=== PATIENT | male | born 1950 | race Caucasian/White ===

== ENCOUNTER → 2024-05-05 10:46 | Outpatient (REF) | payer MEDICARE, OTHER, SELFPAY ==
[2024-05-05 12:18] LABS: Glycohemoglobin (HgbA1c) 7.1 % (4.0-5.6)
[2024-05-05 12:39] LABS: ALT (SGPT) 35 U/L (0-50); AST (SGOT) 35 U/L (17-59); Albumin 4.5 g/dl (3.5-5.0); Alkaline Phosphatase 35 U/L (38-126); Blood Urea Nitrogen 21 mg/dl (9-20); Calcium 9.4 mg/dl (8.4-10.2); Carbon Dioxide 25 mmol/L (22-30); Chloride 103 mmol/L (98-107); Glucose 122 mg/dl (70-99); HDL Cholesterol 58 mg/dl; LDL Cholesterol, Calculated 56 mg/dl; Potassium 4.8 mmol/L (3.5-5.1); Sodium 140 mmol/L (135-145); Total Bilirubin 0.6 mg/dl (0.2-1.3); Total Cholesterol 156 mg/dl (50-199); Total Protein 6.8 g/dl (6.3-8.2); Triglyceride 213 mg/dl (10-149); Very Low Density Lipoprotein 42 mg/dl (0-30); eGFR > 60.00
[2024-05-05 13:10] LABS: Microalbumin, Random Urine 0.7 mg/dl (0.6-1.7)
== END ==
LOC: REG 10:46
PROVIDERS: ATTENDING PHYSICIAN Internal Medicine
DX: E11.9 Type 2 diabetes mellitus without complications (principal); I10 Essential (primary) hypertension; E78.2 Mixed hyperlipidemia
CPT/HCPCS: 36415; 80053; 80061; 82043; 83036

== ENCOUNTER → 2024-08-29 10:37 | Outpatient (REF) | payer MEDICARE, OTHER, SELFPAY | LOC: RAD 10:37 | PROVIDERS: ATTENDING PHYSICIAN Nurse Practitioner Family | DX: K21.9 Gastro-esophageal reflux disease without esophagitis (principal) | CPT/HCPCS: 74221 ==

== ENCOUNTER → 2024-09-12 11:14 | Outpatient (REF) | payer MEDICARE, OTHER, SELFPAY ==
[2024-09-12 12:50] LABS: PSA, Total - Diagnostic 1.22 ng/ml (0.0-4.0)
== END ==
LOC: REG 11:14
PROVIDERS: ATTENDING PHYSICIAN Urology; FAMILY PHYSICIAN Internal Medicine
DX: N40.1 Benign prostatic hyperplasia with lower urinary tract symptoms (principal); R35.0 Frequency of micturition
CPT/HCPCS: 36415; 84153

== ENCOUNTER 2024-12-26 06:24 | Day surgery (SDC) | payer MEDICARE, OTHER, SELFPAY ==
[2024-12-26 07:32] LABS: Glucose - Point of Care 163 mg/dl (70-99)
== END 2024-12-26 09:56 | disposition home or self-care (01) ==
LOC: GI 06:24
PROVIDERS: ATTENDING PHYSICIAN Internal Medicine Gastroenterology
DX: Z12.11 Encounter for screening for malignant neoplasm of colon (principal); D12.2 Benign neoplasm of ascending colon; D12.3 Benign neoplasm of transverse colon; D12.4 Benign neoplasm of descending colon; D12.5 Benign neoplasm of sigmoid colon; K57.30 Diverticulosis of large intestine without perforation or abscess without bleeding; K64.8 Other hemorrhoids; Z86.0100 Personal history of colon polyps, unspecified
CPT/HCPCS: 45385; 45380; 88305; 82962

== ENCOUNTER → 2025-02-02 12:33 | Outpatient (REF) | payer MEDICARE, OTHER, SELFPAY ==
[2025-02-02 13:32] LABS: ALT (SGPT) 35 U/L (0-50); AST (SGOT) 34 U/L (17-59); Albumin 4.7 g/dl (3.5-5.0); Alkaline Phosphatase 43 U/L (38-126); Blood Urea Nitrogen 12 mg/dl (9-20); Calcium 9.8 mg/dl (8.4-10.2); Carbon Dioxide 28 mmol/L (22-30); Chloride 100 mmol/L (98-107); Glucose 124 mg/dl (70-99); HDL Cholesterol 52 mg/dl; LDL Cholesterol, Calculated 44 mg/dl; Potassium 4.3 mmol/L (3.5-5.1); Sodium 136 mmol/L (135-145); Total Protein 6.9 g/dl (6.3-8.2); Very Low Density Lipoprotein 46 mg/dl (0-30); eGFR > 60.00
[2025-02-02 14:01] LABS: PSA, Total - Screen 1.05 ng/ml (0.0-4.0)
[2025-02-02 14:15] LABS: Microalbumin, Random Urine < 0.6 mg/dl (0.6-1.7)
[2025-02-02 14:16] LABS: Glycohemoglobin (HgbA1c) 7.4 % (4.0-5.6)
== END ==
LOC: REG 12:33
PROVIDERS: ATTENDING PHYSICIAN Internal Medicine
DX: E11.9 Type 2 diabetes mellitus without complications (principal); I10 Essential (primary) hypertension; E78.2 Mixed hyperlipidemia; Z12.5 Encounter for screening for malignant neoplasm of prostate
CPT/HCPCS: 36415; 80053; 80061; 82043; 83036; G0103

== ENCOUNTER 2025-02-08 10:43 | Emergency (ER) | payer MEDICARE, OTHER, SELFPAY ==
[2025-02-08 10:43] VITALS: BMI 29.4
[2025-02-08 11:00] VITALS: BP 139/79
[2025-02-08 11:21] LABS: Hematocrit 41.9 % (39.0-52.0); Hemoglobin 14.2 g/dL (13.0-18.0); Mean Corp Hgb Conc. 33.9 g/dL (33.0-37.0); Mean Corpuscular Volume 84.6 fL (80.0-94.0); Nucleated Red Blood Cells % 0 % (-); Platelet Count 176 10^3/uL (130-400); Red Cell Dist. Width 13.2 % (11.5-14.5)
[2025-02-08 11:37] LABS: ALT (SGPT) 42 U/L (0-50); AST (SGOT) 43 U/L (17-59); Albumin 4.8 g/dl (3.5-5.0); Alkaline Phosphatase 40 U/L (38-126); Blood Urea Nitrogen 20 mg/dl (9-20); Calcium 9.7 mg/dl (8.4-10.2); Carbon Dioxide 24 mmol/L (22-30); Chloride 104 mmol/L (98-107); Glucose 156 mg/dl (70-99); Lipase 86 U/L (23-300); Potassium 4.5 mmol/L (3.5-5.1); Sodium 136 mmol/L (135-145); Total Protein 7.2 g/dl (6.3-8.2); eGFR > 60.00
--- NOTE | 2025-02-08 12:03 | ED.GENMED ---
History of Present Illness
General
Chief Complaint: Abdominal Symptoms
Time Seen by Provider: 02/08/25 11:48
History of Present Illness
History of Present Illness:
75-year-old male with history of hypertension hyperlipidemia and bvi-nuryicb-cpsktvqne diabetes presents to the emergency department for evaluation of diffuse abdominal pain ongoing for the past 3 weeks. Pain worsened after eating within
approximately 30 to 45 minutes. Reports generalized periumbilical pain. No fevers, night sweats. Does report mild diarrhea but denies any steatorrhea. No prior abdominal surgical history.
Past History
Past History
ED Past Medical History: HTN, Hypercholesterolemia, NIDDM and Other (Diverticulitis, renal calculi)
ED Past Surgical History: Orthopedic and Tonsilectomy
Social History
Tobacco: Former smoker
Alcohol: Occasional
Personal: Single
Living: with roommate
Review of Systems
Review of Systems
Allergies reviewed?: Yes
All Other Systems: ROS reviewed and negative except as documented in HPI and ROS
Phy Exam
Physical Exam
Physical Exam:
GEN: Well appearing, NAD, WDWN
HEENT: Oral mucosa moist, no scleral icterus
Cardiac: Regular rate
Lung: No respiratory distress, no tachypnea
Abdomen: Soft, diffuse generalized tenderness, no rigidity or peritoneal signs
MSK: No gross deformity or injuries
Skin: Good color, no pallor or jaundice, no rashes
Neuro: AO x3, moves all extremities freely
Psych: Calm, cooperative
Course
Orders/Labs/Results
Orders:
Orders
02/08/25 11:06
Complete Blood Count/With Diff Urgent
Comprehensive Metabolic Panel Urgent
Lipase Urgent
02/08/25 12:02
CT Abd/Pel (IV only)-DH only Urgent
Comment:
Reason For Exam: intractable abd pain x 3wks
02/08/25 13:35
US Abdomen Limited Urgent
Comment: RUQ only
Reason For Exam: post prandial pain
Abnormal Lab Results
02/08/25
11:06
MPV 10.8 H fL
(7.4-10.4)
Monocytes % 9.6 H %
(1.7-9.3)
Glucose 156 H mg/dl
(70-99)
02/08/25 11:06
02/08/25 11:06
Vital Signs
Initial and Last Documented VS:
Initial Vital Signs
Temp Pulse Resp BP Pulse Ox
98.5 F 85 16 139/79 97
02/08/25 11:00 02/08/25 11:00 02/08/25 11:00 02/08/25 11:00 02/08/25 11:00
Last Documented Vital Signs
Temp Pulse Resp BP Pulse Ox
98 F 77 16 126/78 99
02/08/25 12:47 02/08/25 14:00 02/08/25 14:00 02/08/25 12:47 02/08/25 14:00
MDM/Problems Addressed
MDM/Problems Addressed:
Unclear etiology to patient's pain, imaging broadly unremarkable. Recommend outpatient GI follow-up
*Pulse Oximetry
SaO2: 97
Oxygen Mode of Delivery: Room air
Patient hypoxic: no
*Critical Care Note
Total Time (30-74mins, 75-104mins- exclusive of procedures): Not Applicable
ED Attending Note
-
Portions of this chart may have been created with voice recognition software.� Occasional wrong word or��sound alike� substitutions may have occurred due to the inherent limitations of voice recognition software.
Discharge Plan
Departure
Patient Disposition: Home (Routine Discharge)
Date of Disposition: 02/08/25
Time of Disposition: 14:36
Patient with high blood pressure during this ER visit?: No
Discharge Problem:
Generalized postprandial abdominal pain
Instructions: Abdominal Pain
Prescriptions:
No Action
simvastatin 20 MG tablet
20 mg PO HS
metformin 1,000 MG tablet
1,000 mg PO BID@0800,1700
alfuzosin 10 MG tablet extended release 24 hr
10 mg PO QPM
febuxostat [Uloric] 80 MG tablet
40 mg PO QPM
finasteride 1 mg Tablet
1 mg PO DAILY
alpha lipoic acid 600 mg Capsule
600 mg PO DAILY
Trulicity 1.5 mg/0.5 mL Pen Injector
1.5 mg SC SA
Konsyl Daily Fiber (stevia) 3.5 gram Powder In Packet
1 packet PO DAILY
gabapentin 100 mg Capsule
100 mg PO DAILY
losartan 100 mg Tablet
100 mg PO DAILY
pantoprazole 40 MG tablet,delayed release (DR/EC)
40 mg PO BID
acetaminophen [Tylenol] 325 mg Tablet
650 mg PO Q6HPRN PRN (Reason: mild pain)
Theragen Tablet
1 tab PO DAILY
famotidine [Pepcid] 20 mg Tablet
20 mg PO HS
gabapentin 100 mg Capsule
200 mg PO HS
cholecalciferol (vitamin D3) [Vitamin D3] 25 mcg (1,000 unit) Tablet
25 mcg PO DAILY
Visbiome 112.5 billion cell Capsule
1 cap PO DAILY
amoxicillin-pot clavulanate 875-125 mg tablet
1 tab PO BID Qty: 14 0RF
Referrals:
Frandy Hannon DO [Active, Gastroenterology]
Bob Brower DO [Family Provider, Internal Medicine]
Interventions
Interventions:
*Risk Screen - Suicide Last Done: 02/08/25 11:00
*General Assessment Last Done: 02/08/25 11:00
*Neglect/Abuse Screening Last Done: 02/08/25 12:01
*ED- Fall Risk Assessment Last Done: 02/08/25 11:00
*ED COVID-19 Vaccine History Last Done: 02/08/25 11:00
*Nursing Disposition Last Done: 02/08/25 14:46
OE-Kyxavp-Zmqnwtxdcg Assessment Last Done: 02/08/25 12:01
Discharge Date and Time
Discharge Date/Time: 02/08/25 14:50
Print Language: SRI LANKAN
[2025-02-08 12:47] VITALS: BP 126/78
== END 2025-02-08 14:50 | disposition home or self-care (01) ==
LOC: EMR 10:43
PROVIDERS: Emergency Medicine; EMERGENCY PHYSICIAN Emergency Medicine; FAMILY PHYSICIAN Internal Medicine
DX: R10.84 Generalized abdominal pain (principal); I10 Essential (primary) hypertension; E78.00 Pure hypercholesterolemia, unspecified; E11.9 Type 2 diabetes mellitus without complications; Z87.442 Personal history of urinary calculi; Z87.891 Personal history of nicotine dependence
CPT/HCPCS: 99284; 74177; 76705; 80053; 83690; 85025; Q9967

== ENCOUNTER → 2025-05-01 10:15 | Outpatient (REF) | payer MEDICARE, OTHER, SELFPAY ==
[2025-05-01 11:41] LABS: Blood Urea Nitrogen 16 mg/dl (9-20)
== END ==
LOC: REG 10:15
PROVIDERS: ATTENDING PHYSICIAN Orthopaedic Surgery Orthopaedic Surgery of the Spine; FAMILY PHYSICIAN Internal Medicine
DX: Z01.818 Encounter for other preprocedural examination (principal); Z98.890 Other specified postprocedural states
CPT/HCPCS: 36415; 82565; 84520